=== PATIENT | female | born 1970 ===

== ENCOUNTER 2020-12-02 08:15 | Inpatient (IN) | payer OTHER ==
[~2020-12-02] VITALS: Ht 154.9 cm; Wt 62.6 kg
[2020-12-02] MEDS ORDERED: SIMVAST PO (10:39)
[2020-12-08] MEDS ORDERED: SIMVASTATIN20 MG PO (09:11)
== END 2020-12-12 09:08 | disposition home or self-care (01) | DRG 741 ==
LOC: OB/GYN 12-08 05:52 → O/R 12-08 05:52 → OB/GYN 12-08 08:15 → O/R 12-08 15:57 → OB/GYN 12-08 15:58
PROVIDERS: ADMIT Obstetrics & Gynecology Gynecologic Oncology; ATTEND Obstetrics & Gynecology Gynecologic Oncology
PROC: 0UT20ZZ Resection of Bilateral Ovaries, Open Approach (ICD-10-PCS; 2020-12-08)
PROC: 0UT70ZZ Resection of Bilateral Fallopian Tubes, Open Approach (ICD-10-PCS; 2020-12-08)
PROC: 07BC0ZX Excision of Pelvis Lymphatic, Open Approach, Diagnostic (ICD-10-PCS; 2020-12-08)
PROC: 0UT90ZZ Resection of Uterus, Open Approach (ICD-10-PCS; principal; 2020-12-08 10:15)
DX: C53.1 Malignant neoplasm of exocervix (principal); D25.1 Intramural leiomyoma of uterus; D36.0 Benign neoplasm of lymph nodes; N83.8 Other noninflammatory disorders of ovary, fallopian tube and broad ligament; N83.292 Other ovarian cyst, left side